=== PATIENT | male | born 1965 | race Caucasian/White ===

== ENCOUNTER → 2020-02-08 16:04 | Outpatient (CLI) | payer OTHER, SELFPAY ==
--- NOTE | 2020-02-08 | DI.RAD.S_ITS ---
PROCEDURE: XR KNEE LT 3V INDICATIONS: LEFT KNEE PAIN TECHNIQUE: 3 views of the knee were acquired. COMPARISON: None. FINDINGS: Bones: No fractures or dislocations. No suspicious bony lesions. Soft tissues: No joint effusion. No suspicious soft tissue calcifications. IMPRESSION: Minimal medial compartment joint space narrowing indicating slight osteoarthritis as the likely cause. No trauma found. No effusion or loose body seen. Dictated by: Rohith Levi M.D. on 02/08/2020 at 17:20 Approved by: Rohith Levi M.D. on 02/08/2020 at 17:21
== END ==
PROVIDERS: PCP Student in an Organized Health Care Education/Training Program; Referring Provider Student in an Organized Health Care Education/Training Program; Visit Provider Student in an Organized Health Care Education/Training Program
DX: M25.562 Pain in left knee (principal)
CPT/HCPCS: 73562